=== PATIENT | female | born 1945 | race Asian ===

== ENCOUNTER 2020-12-29 11:24 | Outpatient (CLI) | payer MEDICARE, SELFPAY | END 2020-12-29 11:25 | disposition home or self-care (01) | LOC: ANHCOVIDVC 11:24 | PROVIDERS: PCP Family Medicine | DX: Z23 Encounter for immunization (principal) | CPT/HCPCS: 0001A; 91300 ==

== ENCOUNTER 2021-01-19 11:16 | Outpatient (CLI) | payer MEDICARE, SELFPAY | END 2021-01-19 11:17 | disposition home or self-care (01) | LOC: ANHCOVIDVC 11:16 | PROVIDERS: PCP Family Medicine | DX: Z23 Encounter for immunization (principal) | CPT/HCPCS: 0002A; 91300 ==

== ENCOUNTER 2021-06-01 07:51 | Outpatient (CLI) | payer MEDICARE, SELFPAY ==
--- NOTE | ~2021-06-01 | US_ITS ---
EXAMINATION: US thyroid DATE: 06/01/2021 08:21 INDICATION: Thyroid nodule. TECHNIQUE: Multiple ultrasound images of the thyroid were obtained. COMPARISON: Thyroid ultrasound 02/28/2013 FINDINGS: The right thyroid lobe measures 2.3 x 1.5 x 6.4 cm. The left thyroid lobe measures 1.8 x 2.8 x 6.3 c m. In the right thyroid lobe, there is a 1.8 cm predominantly solid, hypoechoic, bvkki-zmzw-kbiy nod ule with ill-defined margin without echogenic foci (TI-RADS TR4), stable from 02/28/13. In the left thy roid lobe, there is a 4.0 cm solid, hypoechoic, myqgu-rmbj-dier nodule with lobulated margin without echogenic foci (TR4), stable from 02/28/13. In the left thyroid lobe, there is a 5 mm solid, hypoechoic , ygdfx-ilhk-eslc nodule without echogenic foci with smooth margin (TR4). IMPRESSION: 1. Multinodular goiter, likely not clinically significant. No follow-up is needed. Reviewed, dictated and finalized at location A. IMPRESSION: 1. Multinodular goiter, likely not clinically significant. No follow-up is need ed.
== END 2021-06-01 07:52 | disposition home or self-care (01) ==
LOC: ANHIMG 07:52
PROVIDERS: PCP Family Medicine; Visit Provider Internal Medicine Endocrinology, Diabetes & Metabolism
DX: E04.2 Nontoxic multinodular goiter (principal)
CPT/HCPCS: 76536

== ENCOUNTER 2021-07-03 07:49 | Outpatient (CLI) | payer MEDICARE, SELFPAY ==
--- NOTE | ~2021-07-03 | DEXA_ITS ---
Bone Density Report Name: Crystal Martinez Age: 75 Sex: Female Ethnicity: Date of : 1945 Indication: postmenopausal; hysterectomy; Referring Provider: Paulette Munoz Study: Bone densitometry was performed. Exam Date: July 03, 2021 Accession number: [id number] Bone Density: Region BMD T-score Z-score Classification AP Spine (L1-L4) 1.128 0.7 3.3 Normal Femoral Neck (Left) 0.893 0.4 2.6 Normal Total Hip (Left) 1.078 1.1 3.0 Normal Total Hip Bilateral Avg 1.090 1.2 3.1 Normal Femoral Neck (Right) 0.933 0.8 3.0 Normal Total Hip (Right) 1.102 1.3 3.2 Normal World Health Organization criteria for BMD impression classify patients as: Normal (T-score at or above -1.0), Osteopenia (T-score between -1.0 and -2.5), or Osteoporosis (T-score at or below -2.5). 10-year Fracture Risk: FRAX not reported because: All T-scores for Spine Total, Hip Total, Femoral Neck at or above -1.0 Previous Exams: Region Exam Age BMD T-score BMD Change BMD Change Date g/cm2 vs Baseline vs Previous AP Spine(L1-L4) 07/03/2021 75 1.128 0.7 -0.005(-0.5%)# 0.009(0.8%) 03/10/2016 70 1.119 0.7 -0.014(-1.3%)# -0.014(-1.3%)# 02/28/2014 68 1.133 0.8 Total Hip(Left) 07/03/2021 75 1.078 1.1 -0.016(-1.5%)# -0.032(-2.9%)* 05/09/2019 73 1.110 1.4 0.016(1.4%)# 0.027(2.5%) 03/10/2016 70 1.083 1.2 -0.011(-1.0%)# -0.011(-1.0%)# 02/28/2014 68 1.095 1.3 Total Hip(Right) 07/03/2021 75 1.102 1.3 -0.043(-3.8%)# -0.006(-0.5%) 05/09/2019 73 1.108 1.4 -0.037(-3.3%)# -0.030(-2.6%)* 03/10/2016 70 1.138 1.6 -0.008(-0.7%)# -0.008(-0.7%)# 02/28/2014 68 1.146 1.7 *Denotes significance at 95% confidence level, LSC for AP Spine = 0.022 g/cm2, LSC for Total Hip = 0.027 g/cm2 Clinical Information Provided by Patient: Has the following medical conditions: Hysterectomy Patient maximum height was 66 Menopause Age: 55 Onset of menses at age 11 Number of children 1 Impression: The patient has normal bone mass. The BMD for the Total Hip(Left) decreased, changing by -2.9% since the last DXA exam. Discussion: LOW RISK OF FRACTURE; BONE DENSITY IS WELL ABOVE THE MINIMUM DESIRABLE LEVEL AND ABOVE AVERAGE FOR AGE AND SEX AT ALL SKELETAL SITES TESTED. This person's bone density is above expected limits for age and sex. This is rarely clinically significant, but should be pursued if there are significant musculoskeletal com
--- NOTE | ~2021-07-03 | MM_ITS ---
EXAMINATION: MM screening teresa BI w adebayo HISTORY: Screening TECHNIQUE: Craniocaudal and mediolateral oblique 3-D tomosynthesis images were obtained and synthetic 2-D images were generated. CAD analysis was submitted and interpreted. COMPARISON: Comparison to multiple prior studies sequentially, with oldest reviewed study dated /oh 12/2016. BREAST PARENCHYMAL COMPOSITION: There are scattered areas of fibroglandular density. FINDINGS: There is no evidence of suspicious mass, calcification, or architectural distortion to sugg est malignancy in either breast. There has been no suspicious interval change. IMPRESSION: 1. No mammographic evidence of malignancy. 2. Recommend routine screening mammography in one year. BI-RADS Category 1: Negative Reviewed, dictated and finalized at location A.
== END 2021-07-03 07:50 | disposition home or self-care (01) ==
LOC: ANHIMG 07:50
PROVIDERS: PCP Family Medicine; Visit Provider Nurse Practitioner Family
DX: Z12.31 Encounter for screening mammogram for malignant neoplasm of breast (principal); Z78.0 Asymptomatic menopausal state
CPT/HCPCS: 77063; 77067; 77080

== ENCOUNTER → 2023-02-23 07:47 | Outpatient (CLI) | payer MEDICARE, SELFPAY ==
--- NOTE | ~2023-02-23 | US_ITS ---
EXAMINATION: US abdomen limited DATE: 02/23/2023 08:26 INDICATION: Enlarging hepatic cyst TECHNIQUE: Multiple grayscale and Doppler ultrasound images of the abdomen were obtained. COMPARISON: CT, 07/24/2019 FINDINGS: Bowel gas obscures visualization of the pancreas. The visualized portions of the pancreas a re unremarkable. There are multiple cysts of the liver which measure up to 4.0 cm. The liver is other rueda normal with normal echogenicity and echotexture. No surface nodularity. Normal hepatopetal flow in the main portal vein. The gallbladder is normal with no abnormal wall thickening, pericholecystic fluid or stones. The normal common bile duct measures 3 mm. There was no sonographic Bishop sign. IMPRESSION: 1. Multiple hepatic cysts without significant change relative to the comparison CT. Reviewed, dictated and finalized at location B.
== END ==
PROVIDERS: PCP Family Medicine; Visit Provider Family Medicine
DX: K76.89 Other specified diseases of liver (principal); R10.11 Right upper quadrant pain
CPT/HCPCS: 76705

== ENCOUNTER 2023-04-24 11:34 | Emergency (ER) | payer MEDICARE, SELFPAY ==
[2023-04-24 11:43] VITALS: BP 145/69; PULSE 81; RESP 16; TEMP 36.6; O2SAT 98
--- NOTE | 2023-04-24 11:45 | ED.SKABFB ---
HPI - Skin/Abscess/Foreign Bdy General Chief complaint: Skin/Abscess/Foreign Body Stated complaint: insect bite Time Seen by Provider: 04/24/23 11:48 Source: patient Mode of arrival: ambulatory Limitations: no limitations History of Present Illness HPI narrative: 77 y/o female presented for c/o right wrist redness and swelling after she was stung by an unknown black insect this morning. 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 She took Benadryl 25mg and applied Nutmeg balm. Denies lip, tongue, or throat swelling, shortness of breath or wheezing, nausea, vomiting. Related Data Home Medications Medication Instructions Recorded Confirmed calcium carbonate 600 mg calcium 600 mg PO DAILY 12/09/22 04/06/23 (1,500 mg) tablet (Calcium) multivitamin 1 tablet PO DAILY 12/09/22 04/06/23 Allergies Allergy/AdvReac Type Severity Reaction Status Date / Time latex Allergy Mild RASH Verified 04/24/23 11:49 morphine Allergy Mild RASH Verified 04/24/23 11:49 Penicillins Allergy Unknown Unknown Verified 04/24/23 11:49 Review of Systems Review of Systems: CONSTITUTIONAL: Denies body aches, fever, chills, or sweats. EYES: Denies visual changes, redness, or discharge. ENT: Denies rhinorrhea, congestion CARDIOVASCULAR: Denies chest pain, palpitations, or edema. RESPIRATORY: Denies cough or dyspnea. GASTROINTESTINAL: Denies abdominal pain, nausea, vomiting, or diarrhea. SKIN: per HPI MUSCULOSKELETAL: Denies back pain, joint pain, or myalgia. NEUROLOGIC: Denies headache, numbness, tingling, or weakness. 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 HLD (hyperlipidemia) HTN (hypertension) IFG (impaired fasting glucose) Latex allergy Liver cyst Multinodular goiter Ovarian cancer Surgical History Surgical History History of hysterectomy History of ovarian cystectomy Family History Family History Unknown Cancer Arthritis Mother Family history of malignant neoplasm of uterus Social History Social History Smoking status: Never smoker Second hand tobacco smoke exposure: No Alcohol intake: never Substance use: unknown Substance use type: does not use Living arrangements: with family Occupation/Education: retired Gender identity (if verbalized by the patient): Female Sexual Orientation (if Verbalized by the Patient): Straight or Heterosexual Spiritual care concerns: No Comments At time of signature, I have reviewed and agree with nursing past medical, surgical, social and family history unless otherwise noted. Please see nursing chart for further information. There is no relevant family history pertinent to the presenting complaint Exam Narrative: GENERAL: Well-appearing HEAD: Normocephalic, atraumatic. EYES: conjunctivae clear, and EOMI. ENT: Mucous membranes moist. Oropharynx without edema, erythema or lesions. NECK: Supple. No lymphadenopathy CHEST: Clear to auscultation. HEART: Regular rate and rhythm. SKIN: Warm, dry. Right hand swelling from MCPs to mid forearm with erythema and moderate swelling surrounding puncture site medial aspect of hand, no streaking, induration, fluctuance or drainage. Right proximal forearm with additional erythematous round flat lesion approx 1.5cm diameter. NEURO: Alert and oriented x3. Course Course Emergency Course: Patient is aware of diagnosis, understands and agrees to treatment plan. Anticipatory guidance given. Patient agrees to follow-up as directed and is aware of reasons to seek care at the emergency department. Portions of this record may have been created with voice recognition software Lev
[2023-04-24] MEDS: methylPREDNISolone SOD SUCC 125 MG VIAL IM (12:04)
== END 2023-04-24 12:30 | disposition home or self-care (01) ==
PROVIDERS: Emergency Provider Nurse Practitioner Family; PCP Family Medicine
DX: T63.481A Toxic effect of venom of other arthropod, accidental (unintentional), initial encounter (principal); E78.5 Hyperlipidemia, unspecified; I10 Essential (primary) hypertension
CPT/HCPCS: 96372; 99213; G0463; J2930

== ENCOUNTER 2023-07-20 07:43 | Outpatient (CLI) | payer MEDICARE, SELFPAY ==
--- NOTE | ~2023-07-20 | MM_ITS ---
EXAMINATION: MM screening teresa BI w adebayo HISTORY: Screening TECHNIQUE: Craniocaudal and mediolateral oblique 3-D tomosynthesis images were obtained and synthetic 2-D images were generated. CAD analysis was submitted and interpreted. COMPARISON: Comparison to multiple prior studies sequentially, with oldest reviewed study dated 03/04. BREAST PARENCHYMAL COMPOSITION: Breast composed of scattered areas of fibroglandular density FINDINGS: There is no evidence of suspicious mass, calcification, or architectural distortion to sugg est malignancy in either breast. There has been no suspicious interval change. IMPRESSION: 1. No mammographic evidence of malignancy. 2. Recommend routine screening mammography in one year. BI-RADS Category 1: Negative Reviewed, dictated and finalized at location A.
== END 2023-07-20 07:44 | disposition home or self-care (01) ==
LOC: ANHIMG 07:46
PROVIDERS: PCP Family Medicine; Visit Provider Family Medicine
DX: Z12.31 Encounter for screening mammogram for malignant neoplasm of breast (principal)
CPT/HCPCS: 77063; 77067

== ENCOUNTER 2024-03-30 08:16 | Outpatient (CLI) | payer MEDICARE, SELFPAY ==
--- NOTE | ~2024-03-30 | US_ITS ---
Limited Abdominal Sonogram: Real-time sonographic imaging of the right upper quadrant was performed. Clinical History: Right upper quadrant pain Findings: The liver appears normal with no evidence of solid mass lesion or bile duct dilatation. He patic cysts are present, largest measuring 5.4 cm in maximum diameter with thin septation. Main rodney l vein demonstrates normal direction of flow. The gallbladder is well distended, and appears normal w ith no evidence of gallstone or wall thickening. The common bile duct measures 4 mm. The visualized pancreas, aorta, and IVC are unremarkable. Impression: No acute or clinically significant abnormality evident. Multiple hepatic cysts, as above. Reviewed, dictated and finalized at location . Impression: No acute or clinically significant abnormality evident. Multiple hepatic cysts, as above.
== END 2024-03-30 08:17 ==
LOC: GOSHIMG 08:17
PROVIDERS: PCP Family Medicine; Visit Provider Family Medicine
DX: K76.89 Other specified diseases of liver (principal)
CPT/HCPCS: 76705

== ENCOUNTER 2024-07-09 09:15 | Outpatient (CLI) | payer MEDICARE, SELFPAY ==
--- NOTE | ~2024-07-09 | DEXA_ITS ---
Bone Density Report Name: SAMEER BONE Age: 78 Sex: Female Ethnicity: Date of : 1945 Indication: postmenopausal; screening for osteoporosis; Referring Provider: JORGE ARAGON Study: Bone densitometry was performed. Exam Date: July 09, 2024 Accession number: [id number] Bone Density: Region BMD T-score Z-score Classification AP Spine(L1-L4) 1.132 0.8 3.5 Normal Femoral Neck (Left) 0.920 0.6 3.0 Normal Total Hip (Left) 1.084 1.2 3.3 Normal Femoral Neck (Right) 0.926 0.7 3.0 Normal Total Hip (Right) 1.074 1.1 3.2 Normal Total Hip Mean 1.079 1.2 3.3 Normal World Health Organization criteria for BMD impression classify patients as: Normal (T-score at or above -1.0), Osteopenia (T-score between -1.0 and -2.5), or Osteoporosis (T-score at or below -2.5). 10-year Fracture Risk: FRAX not reported because: All T-scores for Spine Total, Hip Total, Femoral Neck at or above -1.0 Previous Exams: Region Exam Age BMD T-score BMD Change BMD Change Date g/cm2 vs Baseline vs Previous AP Spine (L1-L4) 07/09/2024 78 1.132 0.8 -0.001 (-0.1%) 0.005 (0.4%) 07/03/2021 75 1.128 0.7 -0.005 (-0.5%) 0.009 (0.8%) 03/10/2016 70 1.119 0.7 -0.014 (-1.3%) -0.014 (-1.3%) 02/28/2014 68 1.133 0.8 Total Hip(Left) 07/09/2024 78 1.084 1.2 -0.010 (-0.9%) 0.006 (0.6%) 07/03/2021 75 1.078 1.1 -0.016 (-1.5%) -0.032 (-2.9%) 05/09/2019 73 1.110 1.4 0.016 (1.4%)# 0.027 (2.5%) 03/10/2016 70 1.083 1.2 -0.011 (-1.0%) -0.011 (-1.0%) 02/28/2014 68 1.095 1.3 Total Hip(Right) 07/09/2024 78 1.074 1.1 -0.071 (-6.2%) -0.028 (-2.5%) 07/03/2021 75 1.102 1.3 -0.043 (-3.8%) -0.006 (-0.5%) 05/09/2019 73 1.108 1.4 -0.037 (-3.3%) -0.030 (-2.6%) 03/10/2016 70 1.138 1.6 -0.008 (-0.7%) -0.008 (-0.7%) 02/28/2014 68 1.146 1.7 *Denotes significance at 95% confidence level, LSC for AP Spine = 0.022 g/cm2, LSC for Total Hip = 0.027 g/cm2 # Denotes dissimilar scan types or analysis methods Clinical Information Provided by Patient: Has used the following medications: Vitamin D, Calcium Patient maximum height was 66.0 Menopause Age: 55 Onset of menses at age 11 Number of children 1 Impression: The patient has normal bone mass. The BMD for the Total Hip(Right) decreased, changing by -2.5% since the last DXA exam. Discussion: LOW RISK OF FRACTURE; BONE DENSITY IS
== END 2024-07-09 09:16 | disposition home or self-care (01) ==
LOC: ANHIMG 09:16
PROVIDERS: PCP Family Medicine; Visit Provider Family Medicine
DX: Z13.820 Encounter for screening for osteoporosis (principal); Z78.0 Asymptomatic menopausal state
CPT/HCPCS: 77080

== ENCOUNTER 2024-08-31 07:36 | Outpatient (CLI) | payer MEDICARE, SELFPAY ==
--- NOTE | ~2024-08-31 | MM_ITS ---
EXAMINATION: MM screening [facility] BI w adebayo HISTORY: Screening mammogram TECHNIQUE: Craniocaudal and mediolateral oblique 3-D tomosynthesis images were obtained and synthetic 2-D images were generated. CAD analysis was submitted and interpreted. COMPARISON: 07/20/2023, 07/03/2021, 01/30/2019 BREAST PARENCHYMAL COMPOSITION:Not Dense. There are scattered areas of fibroglandular density. FINDINGS: No suspicious mass, calcification, or architectural distortion are identified in either jackson ast to suggest malignancy. There has been no suspicious interval change. IMPRESSION: No mammographic evidence of malignancy. Recommend routine screening mammography in one year. BI-RADS Category 1: Negative Reviewed, dictated and finalized at location .
== END 2024-08-31 07:37 | disposition home or self-care (01) ==
LOC: ANHIMG 07:38
PROVIDERS: PCP Family Medicine; Visit Provider Family Medicine
DX: Z12.31 Encounter for screening mammogram for malignant neoplasm of breast (principal)
CPT/HCPCS: 77063; 77067

== ENCOUNTER 2024-11-26 10:59 | Emergency (ER) | payer OTHER, MEDICARE, SELFPAY ==
--- NOTE | ~2024-11-26 | XR_ITS ---
Left Shoulder Technique: AP and scapular Y views were obtained. Clinical History: Trauma Findings: No fracture or dislocation is seen. Osseous alignment is anatomic. The glenohumeral and acr omioclavicular joint spaces are preserved. Soft tissues are unremarkable. Impression: Unremarkable left shoulder radiographs. Reviewed, dictated and finalized at [facility]. [employer] Impression: Unremarkable left shoulder radiographs.
--- NOTE | ~2024-11-26 | XR_ITS ---
HISTORY: trauma COMPARISON: None TECHNIQUE: 3 views of the right first digit were performed FINDINGS: No acute fracture or dislocation. Alignment is maintained. Soft tissues are unremarkable without foreign body or significant calcification. Mineralization is age-appropriate. IMPRESSION: No acute fracture, as detailed above. Reviewed, dictated and finalized at location A. DONTICS DENTIST
--- NOTE | ~2024-11-26 | XR_ITS ---
Lumbosacral Spine: AP and lateral views Clinical History: Pain Findings: The normal lordotic curve is maintained. No fracture seen. There is minimal grade 1 retroli sthesis of L3 over L4. There are mild to moderate degenerative disc changes throughout the lumbar spi ne. There is moderate facet arthropathy throughout. The sacroiliac joints are normally outlined. Impression: Moderate degenerative spondylosis, as detailed above. Reviewed, dictated and finalized at location M. S OPERATOR [employer] Impression: Moderate degenerative spondylosis, as detailed above.
[2024-11-26 11:41] VITALS: BP 154/96; PULSE 87; RESP 16; TEMP 36.5; O2SAT 97
--- OUTSIDE RECORDS SUMMARY | 2024-11-26 12:06 | XMS_ITS | Continuity of Care Document ---
Author Organization [facility] Address [address] [place] [address] Phone Care Team Providers Care Phlebotomy Tech Name Role Phone Selwyn Little MD Unavailable Unavailabl e Allergies, Adverse Reactions, Alerts Substance Reaction Status Criticality morphine Rash Active No Information aspirin Rash Active No Information latex Rash Active No Information Procedures Procedure Date X-ray exam finger(s), minimum 2 views Au Kenalog 10mg/mL Asp/inject Minor joint or bursa w/o US g uidance Office/outpatient visit,est, mod 2023 Global/Postop followup visit Tendon sheath incision, trigger finger M Office/outpatient visit,est, mod 2021 Kenalog Triamcinolone acetonide inj Inject tndn sheath/lgmnt/gangl cyst Office/outpatient visit,new, mod 2020 Advance Directives Directive Yes / No Effective Date File Name No Information Encounters Encounter Description Practice Location Reason(s) For Visit Diagnoses Date Provider Providers Copied on Encounter Office/outpat ient visit,est, mod [facility], [address] [facility] [place], [place], [id number], [place] tel:[phone] [facility] Right hand (chief complaint) Pain in right finger(s)Kaela josh osteoarthrit is, right hand 4 Sidney Samano. [address], [place], [place], [id number], [place]. tel:[phone] Referring Provider: Selwyn Mccain, [address], [place], [address] . tel:[phone] [facility], [address], [place], [place], [id number], [place] tel:[phone] [facility] Right hand (chief complaint) Trigger thumb, right thumb 2 Sidney Samano. [address], [address], [place], [place], [id number], [place]. tel:[phone] [facility], [address] [address], [place], [place], [id number], [place] tel:[phone] [facility] No Information 2 Sidney Samano. [address], [address] [address], [place], [place], [id number], [place]. tel:[phone] Referring Provider: Selwyn Mccain, [address], [place], [address] . tel:[phone] Office/outpat ient visit,[facility], [address] [address], [place], [place], [id number], [place] tel:[phone] [facility] Right Hand (chief complaint) Trigger thumb, right thumb 2 Sidney Samano. [address], [facility] [address], [place], [place], [id number], [place]. tel:[phone] Referring Provider: Selwyn Mccain, [address], [place], [address] . tel:[phone] Office/outpat ient visit,[facility], [address], [place], [place], [id number], [place] tel:[phone] [facility] Right Hand (chief complaint) Trigger thumb, right thumb 1 Sidney Samano. [address], [address], [place], [place], [id number], . tel:[phone] Referring Provider: Selwyn Mccain, [address], [place], [address] . tel:[phone] Family History Family Member Type Diagnosis Age At Onset Mother Problem (finding) Osteoarthritis Immunizations Vaccine Date Status Comments influenza, injectable, quadrivalent, (3 years or older) not administered Note: recorded ; Ann rce: Source Unspecified Payers Payer name Insurance type Covered republican ID Authoriza tion(s) [employer] Medicare CI [id number] Social History Type Description Quantity Date Captured Comments Alcohol Use Details Unknown Caffeine Use Details Unknown Tobacco Use Status No Information Smoking Status No Information Sex Female Vital Signs Date / Time: Height Weight BMI Pulse Rate Blood Pressure Temperature Respiratory Rate Body Surface Area Head Circumference Head Circ. Percentile Wt./Javed. Percentile BMI percentile Pulse Ox Inhaled Ox 9:32 AM 66.00 in 66.678 kg (147.00 lbs) 23.7 3 kg/m neftalier (2) Chief Complaint And Reason For Visit From encounter dated '06/21/2024 09:30'. Right hand (chief complaint). Description: Crystal returns to the office today on June 21, 2024. She is here because of right thumb pain. I treated Crystal for a right trigger thumb with an A1 pulleytrigger release procedure over 2 years ago back on March 01, 2022. Crystal did well with surgery, but she has had pain again in the right thumb for the past 2 months. She does not have triggering. She loc alizes the pain to the right thumb metacarpophalangeal joint. Reason For Referral Reason For Referral No Information Plan Of Treatment Date Type Action Status Referral Ordered: X-ray exam finger(s), minimum 2 views RT ordered History Of Present Illness Encounter Date Complaint History Of Prese nt Illness Right hand Crystal returns t o the office today on June 21, 2024. She is here because of right thumb pain. I treated Crystal for a right trigger thumb with an A1 luke trigger release procedure over 2 years ago back on March 01, 2022. Crystal did well with surgery, but she has had pain again in the right thumb for the past 2 months. She does not have triggering. She localizes the pain to the right thumb metacarpophalangeal joint. Right hand Crystal presents to the office today on March 15, 2022. She is here for follow up of a right trigger thumb. Crystal is 2 weeks out from an A1 luke trigger release procedure for the right thumb on March 01, 2022. Crystal is pleased with her response to surgery. She returns for follow up today. Right Hand Crystal returns t o the office today on January 14, 2022. She is here for follow up of a right trigger thumb. Crystal was last seen in the office nine months ago on April 06, 2021. At that time I injected the flexor tendon sheath of the right thumb with lidocaine and Kenalog for the right trigger thumb. Crystal returns today reporting that the injection helped for about one month, but the pain and triggering returned after that. She is here for follow up today. 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 She is here for the right thumb again today. Right Hand Crystal presents to the office today on April 06, 2021. She is here because of pain and triggering of the right thumb. Her right thumb symptoms have been present for about two months. Crystal reminds me that I operated on her left thumb back on February 05, 2010. 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 She was taken to surgery for an A1 luke trigger release of the left thumb and excision of the volar retinacular ganglion cyst, and she did well. She was very pleased with her response to surgery on the left side. She is here for the right thumb today. Functional Status Date Functional Assessmen t No Information Instructions Date Instruction Additional Infor matelian No Information Assessments Type Assessment Date assessment Pain in right finger(s) 024 assessment Primary osteoarthritis, right lopez nd impression We discussed treatme nt options for the right thumb metacarpophalangeal joint osteoarthritis. We decided to try a cortisone injection today. I injected the right thumb metacarpophalangeal joint today with 1 cc lidocaine and 1 cc Kenalog for the osteoarthritis at the right thumb metacarpophalangeal joint. Crystal may advance her activities as tolerated. She may follow up with me as needed. Crystal may also call with any questions or concerns Patient Care Teams Name Effective Dates (start - stop) Status Members No Information
--- OUTSIDE RECORDS SUMMARY | 2024-11-26 12:06 | XMS_ITS | Patient Health Summary ---
Author Organization [facility] Address [address] [place] [address] Care Team Providers Care Groundskeeping Maintenance Name Role Phone Yadiel Rowland MD Primary Care Provider [phone] Note from [facility],non-owned Affiliates and Associated Physician Practices is amultiple site organization consisting of ambulatory clinics and hospital sitesin [place], [place], [place] and [place]. This disclosure is being madepursuant to the Care Everywhere program and may not contain all information available regarding this patient. Last updated 18.[facility] Allergies * Latex(Skin peels) * Morphine(Rash and itching) * Penicillins(itching) * Rofecoxib Medications * Be aware that medications may not be up to date on this document. Alwaysverify current medications with the patient. * alendronate (FOSAMAX) 70 MG tablet Take 70 mg by mouth every 7 days before meal. Take in morning with full glass of water on empty stomach and remain upright for 30 min * multivitamin daily (THERAGRAN) tablet Take 1 Tab by mouth daily with food * calcium 600 MG tablet Take 1 Tab by mouth daily with food * Wcxfwsvvb-Zntbybrtuty-Yvm D (GLUCOSAMINE COMPLEX PO) Take 1 Tab by mouth once daily * oxyCODONE-acetaminophen (PERCOCET) 5-325 MG tablet(Started 08/31/2016) Take 1 Tab by mouth every 6 hours as needed for Pain * benzocaine-menthol (DERMOPLAST) 20-0.5 % spray(Started 08/31/2016) Apply to affected area as needed for Pain (apply to perineum as needed for pain.) Active Problems Problem Noted Date Diagnosed Date 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 Uterine cancer 08/26/2016 Ovarian cancer 08/26/2016 Social History Tobacco Use Types Packs/Day Years Used Date Smoking Tobacco: Never Smokeless Tobacco: Never Tobacco Cessation:Counseling Given: No Alcohol Use Standard Drinks/Week Comments No 0 (1 standard drink = 0.6 oz pur e alcohol) Sex and Gender Information Value Date Recorded Sex Assigned at Not on file Gender Identity Not on file Sexual Orientation Not on file Last Filed Vital Signs Vital Sign Reading Time Taken Comments Blood Pressure 140/80 11/10/2017 1:46 PM SAFETY AND HEALTH MANAGER Pulse 61 08/31/2016 12:45 PM CDT Temperature 36.4 ??C (97.5 ??F) 08/31/2016 11:55 AM C DT Respiratory Rate 15 08/31/2016 12:45 PM CDT Oxygen Saturation 99% 08/31/2016 12:45 PM CDT Inhaled Oxygen Concentration - - Weight 64.9 kg (143 lb) 11/10/2017 1:46 PM SAFETY AND HEALTH MANAGER Height 167.6 cm (5' 6 ) 11/10/2017 1:46 PM SAFETY AND HEALTH MANAGER Body Mass Index 23.08 11/10/2017 1:46 PM SAFETY AND HEALTH MANAGER Procedures * PATHOLOGY TISSUE(Performed 11/10/2017) * PATHOLOGY TISSUE(Performed 11/10/2017) * PATHOLOGY/GENETICS HISTORICAL-ONBASE(Performed 11/10/2017) * PAP IMAGE-GUIDED W HPV(Performed 04/07/2017) * PATHOLOGY/GENETICS HISTORICAL-ONBASE(Performed 04/07/2017) * CARDIAC RHYTHM STRIP ORDER(Performed 09/02/2016) * PATHOLOGY TISSUE EXAM (STL)(Performed 08/31/2016) Performed for VAIN (vaginal intraepithelial neoplasia) * VAGINECTOMY(Performed 08/31/2016) Performed for VAIN (vaginal intraepithelial neoplasia) * PATHOLOGY/GENETICS HISTORICAL-ONBASE(Performed 08/31/2016) * PAP IMAGE-GUIDED W HPV(Performed 08/02/2016) * PATHOLOGY/GENETICS HISTORICAL-ONBASE(Performed 08/02/2016) * PAP IMAGE-GUIDED W HPV(Performed 04/09/2015) * PATHOLOGY/GENETICS HISTORICAL-ONBASE(Performed 04/09/2015) * PAP IG RFLX HPV ASCU(Performed 07/18/2013) * PATHOLOGY/GENETICS HISTORICAL-ONBASE(Performed 07/18/2013) * PATHOLOGY/GENETICS HISTORICAL-ONBASE(Performed 01/10/2013) * PATHOLOGY/GENETICS HISTORICAL-ONBASE(Performed 07/05/2012) * LAB HISTORICAL RESULTS-ONBASE(Performed 07/05/2012) * PATHOLOGY/GENETICS HISTORICAL-ONBASE(Performed 07/05/2012) * PAP IG RFLX HPV ASCU(Performed 02/09/2012) * PATHOLOGY/GENETICS HISTORICAL-ONBASE(Performed 02/09/2012) * PAP IG RFLX HPV ASCU(Performed 11/10/2011) * PATHOLOGY/GENETICS HISTORICAL-ONBASE(Performed 11/10/2011) * CARDIAC RHYTHM STRIP ORDER(Performed 07/14/2011) * PAP THINPREP(Performed 01/06/2011) * LAB HISTORICAL RESULTS-ONBASE(Performed 12/29/2010) * PAP THINPREP(Performed 09/14/2010) * CANCER ANTIGEN (CA)125 BLOOD(Performed 09/07/2010) * PAP THINPREP(Performed 05/22/2010) * CANCER ANTIGEN (CA)125 BLOOD(Performed 05/07/2010) * PAP THINPREP(Performed 01/05/2010) * LAB HISTORICAL RESULTS-ONBASE(Performed 01/05/2010) * CANCER ANTIGEN (CA)125 BLOOD(Performed 12/29/2009) * LAB HISTORICAL RESULTS-ONBASE(Performed 07/23/2009) * PATHOLOGY/GENETICS HISTORICAL-ONBASE(Performed 07/23/2009) * PATHOLOGY/GENETICS HISTORICAL-ONBASE(Performed 03/11/2009) * LAB HISTORICAL RESULTS-ONBASE(Performed 03/05/2009) * PATHOLOGY/GENETICS HISTORICAL-ONBASE(Performed 12/11/2008) * LAB HISTORICAL RESULTS-ONBASE(Performed 12/03/2008) * CYTOLOGY NON-SENIOR STORAGE ADMINISTRATOR PANEL(Performed 07/19/2000) * CYTOLOGY NON-SENIOR STORAGE ADMINISTRATOR PANEL(Performed 07/19/2000) * FROZEN SECTION(Performed 07/19/2000) Results * PATHOLOGY/GENETICS HISTORICAL-ONBASE (11/10/2017) Only the most recent of14 resultswithin the time period is included. 11/10/2017 Historical Provider LAB - CHEMISTRY O RDERABLES [facility] [address] * PATHOLOGY TISSUE (11/10/2017 12:00 AM SAFETY AND HEALTH MANAGER) Only the most recent of2 resultswithin the time period is included. Pathologist [facility] Surgical Pathology Tissue ACCESSION No: [id number] CLINICAL HISTORY: Vaginal cuff biopsy. FINAL DIAGNOSIS: Vaginal cuff biopsy: - ??Fibrosis with chronic inflammation - ??Negative for malignancy MICROSCOPIC DESCRIPTION AND COMMENT: Sections of the vaginal biopsy cut show a biopsy fragment of vaginal mucosa with underlying fibrosis and chronic inflammation. ??There is no dysplasia or invasive malignancy. MS/met GROSS DESCRIPTION: The specimen is received fixed in formalin in one container labeled with the patient's name, Crystal Martinez, and vaginal biopsy cuff , and consists of two rubbery, brown-chao tissue fragments measuring 0.2 and 0.4 cm in greatest dimension with an aggregate measurement of 0.7 x 0.3 x 0.2 cm. ??The specimen is filtered into a bag and submitted entirely in cassette A1/ CT for EMS/met The performance characteristics of all immunohistochemical and indirect immunofluorescence stains (if any) cited in this report were determined by the [facility] of [facility].?? Some of these tests were developed by our own laboratory and have not been cleared or approved by the US Food and Drug Administration.?The FDA does not require this test to go through premarket FDA review.?These tests are used for clinical purposes. They should not be regarded as investigational or for research.?? This laboratory is certified under the Clinical Laboratory Improvement Amendments (CLIA) as qualified to perform high complexity clinical laboratory testing. This case has been personally reviewed and interpreted by the attending (teaching) pathologist. Final Diagnosis performed by Kike Costa DO. Electronically signed 11/18/2017 [facility] Other (qualifier value) 11/10/2017 11/17/2017 10:59 AM SAFETY AND HEALTH MANAGER Narrative [facility] - 11/18/2017 10:39 AM SAFETY AND HEALTH MANAGER Specimen A->Vaginal ? CUFF BIOPSY Bobbi Singh TIPPING MACHINE OPERATOR-PUBLIC HEALTH WORKER LAB - PATHOLOGY/ CYTOLOGY ORDERABLES [facility] [address] [facility] [phone] * (ABNORMAL) PAP IMAGE-GUIDED LIQUID BASE W HPV (04/07/2017 12:00 AM CDT) Only the most recent of3 resultswithin the time period is included. Pap Image-Guided Liquid-Based with HPV Accession No: [id number] Specimen:Endocervi ryan ThinPrep Slides:1 SPECIMEN ADEQUACY: Specimen Processed and Examined, but Unsatisfactory for Evaluation of Epithelial Abnormality Because of: - Scant Squamous Component INTERPRETATION: UNSATISFACTORY FOR EVALUATION NOTE(S): HPV DIRECT - HPV Result to Follow This specimen was evaluated by the ThinPrep Imaging System along with an additional manual rescreening by a machine stripper cutter and/or pathologist Initial Evaluation performed by Nilda ROSEN (ASC). Electronically signed 04/11/2017 Interpretation performed by Moe Paniagua MD. ??Electronically signed 04/19/2017 (A) [facility] ([facility]) Endocervical 04/07/2017 04/11/2017 9 :10 AM CDT Brayan Kc MD LAB - PATHOLOGY/CYTO LOGY ORDERABLES Performing Organization Address [facility] de Phone Number [facility] ([facility]) * CARDIAC RHYTHM STRIP ORDER (09/02/2016 8:56 PM CDT) Only the most recent of2 resultswithin the time period is included. Narrative 09/02/2016 8:56 PM CDT Ordered by an unspecified provider. Scanned Document CARDIAC SERVICES ORD ERABLES * GROSS + MICRO EXAM (STL) (08/31/2016 10:58 AM CDT) Case Report Surgical Pathology Report ? Case: [id number] ? Authorizing Provider: ??Brayan Kc MD ? Collected: ? 08/31/2016 10:58 AM ? Ordering Location: ? [facility] ? Received: ?08/31/2016 11:32 AM ? Pathologist: ? Juan Miguel García MD ? Specimens: ?? A) - Vagina Biopsy, vaginal cuff biopsy ? B) - Vagina Biopsy, vaginal ??biopsy ? 09/01/2016 11:20 AM [facility] Final Diagnosis 1 and 2, vaginal cuff and vaginal, biopsies: -- Surface erosion/ulceration -- Negative for dysplasia or malignancy. 09/01/2016 11:20 AM [facility] Gross Description Received in formalin are two containers each labeled, Crystal Martinez. Container 1 is labeled, ? vaginal cuff biopsy.? The container holds three pink-chao and chao-nuñez tissue fragments measuring from 0.4 cm up to 0.6 cm. The specimen is entirely submitted in cassette labeled A1. Container 2 is labeled, ? vaginal biopsy.? The container holds a single pink-chao tissue fragment measuring 0.4 x 0.3 x 0.2 cm. The specimen is entirely submitted in cassette labeled B1. DYT/na 09/01/2016 11:20 AM T [facility] Microscopic Description 1 and 2. Sections show vaginal squamous mucosa with surface erosion/ulceraton with associated inflammation and vascular congestion. No dysplasia or malignancy is seen. 09/01/2016 11:20 AM T [facility] Disclaimer All histochemical and/or immunohistochemical results are interpreted with controls that demonstrate appropriate staining reactions before reporting results. Note on use of immunocytochemistry reagents: This test was developed and its performance characteristic determined by [facility], Department of Laboratory Medicine. It has not been cleared or approved by the U.S. Food and Drug Administration (FDA). The FDA has determined that such clearance or approval is not necessary. The test is used for clinical purpose. It should not be regarded as investigational or for research. This laboratory is certified to perform high complexity testing. 09/01/2016 11:20 AM T [facility] Embedded Images 09/01/2016 11:20 AM T [facility] Pathology/Cytology VAGINAL BIOPSY SPECIMEN / Unknown 08/31/2016 10:58 AM CDT 08/31/2016 11:32 AM CDT Miscellaneous samples (specimen) VAGINAL BIOPSY SPECIMEN / Unknown 08/31/2016 10:59 AM CDT 08/31/2016 11:32 AM CDT Brayan Kc MD LAB - PATHOLOGY/CYTO LOGY ORDERABLES Performing Organization Address City/[facility] Co de Phone Number [facility] [address] [place] [address] * PAP IG RFLX HPV ASCU (07/18/2013) Only the most recent of3 resultswithin the time period is included. ENTIRE VAGINA / Unknown 07/18/[address] [facility] - 07/24/2013 7:39 AM CDT Mel Katz MD LAB - PATHOLOGY/CYTO LOGY ORDERABLES [facility] [address] * LAB HISTORICAL RESULTS-ONBASE (07/05/2012) Only the most recent of6 resultswithin the time period is included. 07/05/[address] [facility] - 07/13/2012 9:05 AM CDT Historical Provider LAB - CHEMISTRY Shaunna WALLACE Performing Organization Address [facility] Co de Phone Number [facility] [address] [place], [place] [address] * PAP THINPREP (01/06/2011) Only the most recent of4 resultswithin the time period is included. Other (qualifier value) PART OF UTERINE CERVIX / Unknown 01/06/[address] [facility] - 01/13/2011 2:44 PM CDT Preferred Lab:->OTHER EXTERNAL LAB Mel Katz MD LAB - PATHOLOGY/CYTO LOGY ORDERABLES Performing Organization Address [facility] de Phone Number [facility] * CANCER ANTIGEN (CA)125 BLOOD (09/07/2010 9:36 AM SAFETY AND HEALTH MANAGER) Only the most recent of3 resultswithin the time period is included. CA 125 4 <21 U/mL [facility] Comment: This test was performed using the Siemens Chemiluminescent method. Values obtained from different assay methods cannot be used interchangeably. CA 125 levels, regardless of value, should not be interpreted as absolute evidence of the presence or absence of disease. Test Performed at: [employer] [place] [id number] [place] [address] ??[id number] BRAD SALINAS DO,MPH 09/07/2010 9:36 AM SAFETY AND HEALTH MANAGER 09/07/2010 9:36 AM SAFETY AND HEALTH MANAGER Mel Katz MD LAB - CHEMISTRY STACIE MANRIQUEZ Performing Organization Address [facility] Co de Phone Number [facility] ([facility]) * CYTOLOGY NON-SENIOR STORAGE ADMINISTRATOR PANEL (07/19/2000 1:52 PM CDT) Only the most recent of2 resultswithin the time period is included. Result CASE NUMBER [id number] Comment: ORDERING PHYSICIAN ??RENITA KATZ SPECIMEN TYPE ?Fluid-diaphragmatic washings Date ? 07/19/2000 Physician ?Sterling Specimen Adequacy ?Satisfactory for Evaluation Cell Pathology ? Benig mesothelial cells seen. *Diagnosis ? Negewtive. *Comment ? 90 cc. of cloudy, red fluid. ??1 Thin-prep made. Snomed. ?07/21/2000 0747 <1> Pathologist ?Masoud Levy M.D. CPT code ? 8104/66524 MISCELLANEOUS SAMPLES / Unknown 07/19/2000 1:52 PM CDT 07/19/2000 1:52 PM CDT Historical Provider MD LAB - PATHOLOGY/C YTOLOGY ORDERABLES * FROZEN SECTION (07/19/2000 10:25 AM CDT) Result CASE NUMBER [id number] Comment: ORDERING PHYSICIAN ??RENITA KATZ SPECIMEN TYPE ?Tissue-rt gutter Date ? 07/19/2000 Physician ?Sterling Gross Description ? Tissue submitted ??1-right gutter. ??2-posterior cul-de-sac ??3. Rectal implant. 4-pelvic washings, 5-diaphragmatic washings. 6-right vaginal cuff, 7-left vaginal cuff, 8-right vaginal wall, 9-left vaginal wall,10-infudibular pelvic, 11-right pelvic lymph node, 12-right common iliac lymph node, 13- left infudibular pelvic ligament, 14-left pelvic lymph node, 15-left periaortic lymph node, 16-right periarotic lymph node, 17-appendix, 18-left gutter biopsy, 19-omentum. 1-Gross examination ??the specimen is identified as right gutter is a red chao irregular soft tissue fragment measuring 0.6 x 0.5 x 0.4 cm. This specimen is totally submitted for frozen section in FSA. ?? RK/c 2-Gross examination ??the specimen is identified as posterior cul-de- sac are two red chao tissue fragments measuring 0.5 and 0.3 cm each in greatest diameter. ??Both are totally submitted for frozen section in FSB. 3-Gross examination ??the specimen is identified as rectal implant are two pink chao irregular soft tissue fragments measuring 0.7 and 0.6 cm each in greatest diameter. ??Both are totally submitted for frozen section in FSC. ?? RK/c 4-the specimen is identified as pelvic washings and consists of 30 cc of red fluid. This specimen is submitted for cell block. 5-the specimen is identified as diaphragmatic washings and consists of 15 cc of red fluid. This specimen is submitted for cell block. ??[place]/ [facility] [place] 6-the specimen is identified as right vaginal cuff is a 0.6 x 0.5 x 0.3 cm chao red irregularly-shaped soft tissue fragment. The entire specimen is submitted in cassette D. 7-the specimen is identified as left vaginal cuff is a yellow chao irregularly-shaped soft tissue fragment measuring 1.0 cm in greatest diameter. ?? The entire specimen is submitted in E. 8-the specimen is identified as right lateral pelvic wall is a pink chao irregular soft tissue fragment measuring 1.0 cm in greatest diameter. ??The entire specimen is submitted in F. 9-the specimen is identified as left lateral pelvic wall and consists of 4 yellow chao irregular fibrofatty soft tissue fragments varying from 1.0 to 0.5 cm. in greatest diameter. ??The entire specimen is submitted in G. 10-the specimen is identified as infundibular pelvic and consists of a chao pink irregular soft tissue fragment 3.5 x 3.0 x 1.0 cm. ??The specimen h as a firm nodule, 2.0 x 1.0 x 0.8 cm. that is yellow chao. This grossly represents a lymph node or implant. The entire specimen is submitted in H. 11-the specimen is identified as right pelvic lymph node and consists of 2 red yellow fibrofatty soft tissue fragments, 3.3 x 1.5 x 0.6 cm and 3.3 x 1.2 x 0.4 cm. ??One of the soft tissue fragments may contain lymphoid tissue, however both appear to be aggregates of adipose tissue. The entire specimen is submitted in I. 12-the specimen is identified as right common iliac lymph node and consists of a single chao red lymph node measuring 2.3 x 1.5 x 0.5 cm. this lymph node is totally submitted in J. 13-the specimen is identified as left infudibular pelvic ligament is a yellow chao soft tissue fragment 3.7 x 3.0 x 1.3 cm. one area of this has a chao purple firm area 2.0 cm in greatest diameter. ??This grossly appears as a implant or lymph node. The entire specimen is submitted in K. 14-the specimen is identified as left pelvic lymph node and consists of a yellow red lymph node 3.0 x 2.0 x 0.6 cm. The entire specimen is submitted in cassette L. 15- the specimen is identified as left periaortic lymph node is a yellow red lymph node measuring 2.5 x 2.0 x 0.6 cm. ??The entire specimen is submitted in M. 16-the specimen is identified as right periaortic lymph node is a yellow red lymph node measuring 3.3 x 2.3 x 1.0 cm. ??The entire specimen is submitted in N. 17-the specimen is identified as appendix is a pink chao appendix, 7.5 x 0.7 x 0.7 cm. ??The specimen is serially sectioned revealing a wall thickness of 0.4 cm. ??The lumen is 0.2 cm in diameter. the tip is longitudinally sectioned revealing no masses. One half of the tip in a cross section from the mid and proximal portion are submitted in O. No masses are identified. 18-the specimen is identified as `left gutter biopsy are two chao irregular soft tissue fragments, 1.0 and 0.6 cm in greatest diameter. ?? These fragments are totally submitted in P. 19-the specimen is identified as omentum is a portion of yellow red omentum, 45 x 7 x 3 cm., 330 gms. is serially sectioned revealing unremarkable yellow pink fibrofatty soft tissue. ??Caustic Operator sections are submitted in Q and R. ??RK/jasonc Microscopic Exam ? 1. ??The specimen identified as right gutter consists of benign smooth muscle without metastasis. ?? The permanent sections concur with the frozen section diagnosis. 2. ??The specimen identified as posterior cul-de-sac consists of benign smooth muscle and adipose tissue without metastasis. ??The permanent sections confirm the frozen section diagnosis. 3. ??The specimen identified as rectal implant consists of smooth muscle and adipose tissue and is without metastasis. ??Permanent sections concur with the frozen section diagnosis. 4. ??The specimen identified as pelvic washings consists of benign mesothelial cells and blood. ??No metastasis is present. 5. ??The cell block from the specimen identified as diaphragmatic washings consists of benign mesothelial cells and largely blood. ??No metastasis is identified. 6. ??The specimen identified as right vaginal cuff consists of benign smooth muscle cells and blood. ??No metastases are identified. ?? 7. ??The specimen identified as left vaginal cuff consists of largely adipose tissue and two fragments of benign smooth muscle tissue. ??No metastases are identified. 8. ??The specimen identified as right lateral pelvic wall consists of smooth muscle tissue and vessels. ??No metastases are identified. 9. ??The specimen identified as left lateral pelvic wall consists of fragments of adipose tissue and smooth muscle. ??No metastases are identified. 10. The specimen identified as infundibular pelvic consists of benign adipose tissue intermixed with numerous vessels. ??A suture granuloma with foreign body reaction consisting of giant cells is present. ??No metastases are identified. 11. The specimen identified as right pelvic lymph node consists of benign lymphoid tissue. ??10/31 lymph node without metastasis is identified. ?? 12. The specimen identified as right common iliac lymph node consists of two benign aggregates of lymphoid tissue. ??No metastases are identified in 2/2 lymph nodes. 13. ??The specimen identified as left infundibular pelvic ligament consists of a benign lymph node aggregate. ??No metastases are identified in 1/1 lymph node. ?? 14. ??The specimen identified as left pelvic lymph node consists of a benign lymph node. No tumor is seen. 15. ??The specimen identified as left periaortic lymph node consists of fatty tissue. No lymph nodes are identified. No tumor is seen. 16. ??The specimen identified as right periaortic lymph node consists of fatty tissue with six lymph node profiles. No tumor is seen. 17. ??The specimen identified as appendix consists of benign appendiceal lymphoid aggregates. ??No metastases or masses are identified. 18. ??The specimen identified as left gutter biopsy consists of benign soft tissue with surrounding adipose tissue. ??No metastases are identified. 19. ??The specimen identified as omentum consists of mostly adipose tissue with intermixed small vessels, hemorrhage, and benign-appearing smooth muscle. ??There is inflammation and fibrosis present. ??No metastases are identified. Diagnosis ? FROZEN SECTION DIAGNOSIS ?I. ??FSA - right gutter, frozen section diagnosis ?A. ??Benign. ? (SR/AB). ? II. ??FSB - posterior cul-de-sac implant, frozen section ?diagnosis ?A. ??Negative for tumor. ?? (RT). ?III. ??FSC - rectal implant, frozen section diagnosis ?A. ??No tumor seen. ?(GM/AB). ? FINAL DIAGNOSIS ?I. ??Right gutter, biopsy ?A. ??No tumor identified. ? II. ??Posterior cul-de-sac, biopsy ?A. ??Negative for tumor. ?III. ??Rectal implant ?A. ??No tumor seen. ? IV. ??Pelvic washings, cell block ?A. ??Negative for tumor cells. ?V. ??Diaphragmatic washings, cell block ?A. ??Negative for malignancy. ? . ??Right vaginal cuff, biopsy ?A. ??Negative for metastasis. ?VII. ??Left vaginal cuff, biopsy ?A. ??Negative for metastasis. ? VIII. ??Right lateral pelvic wall, biopsy ?A. ??Negative for metastasis. ? IX. ??Left lateral pelvic wall, biopsy ?A. ??Negative for metastasis. ?X. ??Infundibular pelvic, biopsy ?A. ??Negative for metastasis. ?B. ??Suture granuloma. ? XI. ??Right pelvic lymph node ?A. ??No tumor identified in one lymph node (0/1) ?XII. ??Right common iliac lymph node ?A. ??No tumor identified in two lymph nodes (0/2) ? XIII. ??Left infundibular pelvic ligament ?A. ??No tumor identified in one lymph node (0/1) ?XIV. ??Left pelvic lymph node ?A. No tumor identified in one lymph node (0/1) ? XV. ??Left periaortic lymph node ?A. No lymph nodes identified. ?XVI. ??Right periaortic lymph node ?A. No tumor identified in six lymph node profiles (0/6) ? XVII. ??Appendix ?A. ??No pathologic diagnosis. ?B. ??Negative for metastasis. ?XVIII. ??Left gutter biopsy ?A. ??Negative for metastasis. ?XIX. ??Omentum ?A. ??Negative for metastasis. ?B. ??Inflammation and fibrosis. Muffler Mechanic ? bk Pathologist ?Torres Sarabia M.D. Snomed. ?07/21/2000 0927 <9> CPT code ? 50486/02358 x14, 95048/12002 x1, 8307/24747 x1, 8331/38874 x3 MISCELLANEOUS SAMPLES / Unknown 07/19/2000 10:25 AM CDT 07/19/2000 10:25 AM CDT Historical Provider LAB - PATHOLOGY/C YTOLOGY ORDERABLES Care Teams Groundskeeping Maintenance Relationship Specialty Start Date End Date Yadiel Rowland MD [address] [facility] [address] [place] [address] PCP - General Family Medicine 08/31/16
--- OUTSIDE RECORDS SUMMARY | 2024-11-26 12:06 | XMS_ITS | Referral Summary ---
Author Organization [facility] Address [address] [facility] [place] [address] Care Team Providers Care Security Assessor Name Role Phone Yadiel Rowland MD Primary Care Provider [phone] Source Comments [facility],non-[facility] and Associated Physician Practices is amultiple site organization consisting of ambulatory clinics and hospital sitesin [place], [place], [place] and [place]. This disclosure is being madepursuant to the Care Everywhere program and may not contain all information available regarding this patient. Last updated 18.[facility] Allergies Active Allergy Reactions Criticality Noted Date Comments Latex 07/01/2011 Skin peels Morphine 07/01/2011 Rash and itching Penicillins 07/01/2011 itching Rofecoxib 08/26/2016 Medications * Be aware that medications may not be up to date on this document. Alwaysverify current medications with the patient. Medication Sig Dispensed Refills Start Date End Date Status alendronate (FOSAMAX) 70 MG tablet Take 70 mg by mouth every 7 days before meal. Take in morning with full glass of water on empty stomach and remain upright for 30 min Active multivitamin daily (THERAGRAN) tablet Take 1 Tab by mouth daily with food Active calcium 600 MG tablet Take 1 Tab by mouth daily with food Active Boswellia-Glucosamine -Vit D (GLUCOSAMINE COMPLEX PO) Take 1 Tab by mouth once daily Active oxyCODONE-acetaminoph en (PERCOCET) 5-325 MG tablet Take 1 Tab by mouth every 6 hours as needed for Pain 20 Tab 08/31/2016 Active benzocaine-menthol (DERMOPLAST) 20-0.5 % spray Apply to affected area as needed for Pain (apply to perineum as needed for pain.) 56 g 08/31/2016 Active Active Problems Problem Noted Date Diagnosed Date [...] Comments Blood Pressure 140/80 11/10/2017 1:46 PM TRIM OPERATOR Pulse 61 08/31/2016 12:45 PM CDT Temperature 36.4 ??C (97.5 ??F) 08/31/2016 11:55 AM C DT Respiratory Rate 15 08/31/2016 12:45 PM CDT Oxygen Saturation 99% 08/31/2016 12:45 PM CDT Inhaled Oxygen Concentration - - Weight 64.9 kg (143 lb) 11/10/2017 1:46 PM TRIM OPERATOR Height 167.6 cm (5' 6 ) 11/10/2017 1:46 PM TRIM OPERATOR Body Mass Index 23.08 11/10/2017 1:46 PM TRIM OPERATOR Plan of Treatment Not on file Care Teams Security Assessor Relationship Specialty Start Date End Date Yadiel Rowland MD [address] [place] [address] PCP - General Family Medicine 08/31/16
--- OUTSIDE RECORDS SUMMARY | 2024-11-26 12:06 | XMS_ITS | Clinical Summary ---
Author Organization [facility] Address [address] [facility] [place] [address] Care Team Providers Care Machine Washer Name Role Phone Yadiel Rowland MD Primary Care Provider [phone] Source Comments [facility],non-[facility] and Associated Physician Practices is amultiple site organization consisting of ambulatory clinics and hospital sitesin [place], [place] and [place]. This disclosure is being madepursuant to the Care Everywhere program and may not contain all information available regarding this patient. Last updated 18.[facility] Allergies Active Allergy Reactions Criticality Noted Date [...] Comments Blood Pressure 140/80 11/10/2017 1:46 PM TERMITE CONTROL SERVICER Pulse 61 08/31/2016 12:45 PM CDT Temperature 36.4 ??C (97.5 ??F) 08/31/2016 11:55 AM C DT Respiratory Rate 15 08/31/2016 12:45 PM CDT Oxygen Saturation 99% 08/31/2016 12:45 PM CDT Inhaled Oxygen Concentration - - Weight 64.9 kg (143 lb) 11/10/2017 1:46 PM TERMITE CONTROL SERVICER Height 167.6 cm (5' 6 ) 11/10/2017 1:46 PM TERMITE CONTROL SERVICER Body Mass Index 23.08 11/10/2017 1:46 PM TERMITE CONTROL SERVICER Plan of Treatment Health Maintenance Due Date Last Done Comments BONE DENSITY TESTING 1943 DTAP/TDAP/TD VACCINES (1 - Tdap) 1962 PNEUMOCOCCAL VACCINE 50+ (1 of 1 - PCV) 1993 ZOSTER VACCINE (1 of 2) 1993 Respiratory Syncytial Virus (RSV) Vaccine Pt: or over 60 yrs (1 - 1-dose 75+ series) 2018 COVID-19 VACCINE ( - 2023-2 5 season) 2024 INFLUENZA VACCINE (#1) 2024 DEPRESSION SCREENING 10/31/2024 MEDICARE AWV ? CALENDAR YEAR 2024 HEPATITIS B VACCINE Aged Out No longe r eligible based on patient's age to complete this topic HIB VACCINE Aged Out No longer eligi ble based on patient's age to complete this topic HPV VACCINE Aged Out No longer eligi ble based on patient's age to complete this topic MENINGOCOCCAL (Group B) VACCINE Aged Out No longer eligible based on patient's age to complete this topic MENINGOCOCCAL VACCINE Aged Out No mo raciel eligible based on patient's age to complete this topic Care Teams Machine Washer Relationship Specialty Start Date End Date Yadiel Rowland MD [address] [place] [address] PCP - General Family Medicine 08/31/16
--- OUTSIDE RECORDS SUMMARY | 2024-11-26 12:39 | XMS_ITS | Patient Health Summary ---
Author Organization [facility] Address [address] [facility] [place] [address] Care Team Providers Care Hair Mixer Name Role Phone Yadiel Rowland MD Primary Care Provider [phone] Note from [facility],non-owned Affiliates and Associated Physician Practices is amultiple site organization consisting of ambulatory clinics and hospital sitesin [place], [place], [place] and [place]. This disclosure is being madepursuant to the Care Everywhere program and may not contain all information available regarding this patient. Last updated 18.[facility] Allergies * Latex(Skin peels) * Morphine(Rash [...] Tab by mouth daily with food * Zdofolrvg-Ykvhxeukynz-Ncp D (GLUCOSAMINE COMPLEX PO) Take 1 Tab [...] Comments Blood Pressure 140/80 11/10/2017 1:46 PM CELLAR WORKER Pulse 61 08/31/2016 12:45 PM CDT Temperature 36.4 ??C (97.5 ??F) 08/31/2016 11:55 AM C DT Respiratory Rate 15 08/31/2016 12:45 PM CDT Oxygen Saturation 99% 08/31/2016 12:45 PM CDT Inhaled Oxygen Concentration - - Weight 64.9 kg (143 lb) 11/10/2017 1:46 PM CELLAR WORKER Height 167.6 cm (5' 6 ) 11/10/2017 1:46 PM CELLAR WORKER Body Mass Index 23.08 11/10/2017 1:46 PM CELLAR WORKER Procedures * PATHOLOGY TISSUE(Performed 11/10/2017) * PATHOLOGY [...] * LAB HISTORICAL RESULTS-ONBASE(Performed 12/03/2008) * CYTOLOGY NON-WEATHER ANALYST PANEL(Performed 07/19/2000) * CYTOLOGY NON-WEATHER ANALYST PANEL(Performed 07/19/2000) * FROZEN SECTION(Performed 07/19/2000) Results * PATHOLOGY/GENETICS HISTORICAL-ONBASE (11/10/2017) Only the most recent of14 resultswithin the time period is included. 11/10/2017 Historical Provider LAB - CHEMISTRY O RDERABLES [facility] [address] * PATHOLOGY TISSUE (11/10/2017 12:00 AM CELLAR WORKER) Only the most recent of2 resultswithin the time period is included. Pathologist [facility] Surgical Pathology Tissue ACCESSION No: [id number] CLINICAL HISTORY: Vaginal cuff biopsy. FINAL DIAGNOSIS: [...] bag and submitted entirely in cassette A1/ [place] for EMS/met The performance characteristics of all immunohistochemical and indirect immunofluorescence stains (if any) cited in this report were determined by the Histopathology Laboratory of [facility].?? Some of these tests were developed by [...] by Kike Costa DO. Electronically signed 11/18/2017 [facility] Other (qualifier value) 11/10/2017 11/17/2017 10:59 AM CELLAR WORKER Narrative [facility] - 11/18/2017 10:39 AM CELLAR WORKER Specimen A->Vaginal ? CUFF BIOPSY Bobbi Singh DIRECTOR OF OCCUPATIONAL HEALTH-SOIL TECHNOLOGIST LAB - PATHOLOGY/ CYTOLOGY ORDERABLES [facility] [address] [facility]. [address] [phone] * (ABNORMAL) PAP IMAGE-GUIDED LIQUID BASE W HPV (04/07/2017 12:00 AM CDT) Only the most recent of3 resultswithin the time period is included. Pap Image-Guided Liquid-Based with HPV Accession No: [id number] Specimen:Endocervi ryan ThinPrep Slides:1 SPECIMEN ADEQUACY: Specimen Processed and Examined, but Unsatisfactory for Evaluation of Epithelial Abnormality Because of: - Scant Squamous Component INTERPRETATION: UNSATISFACTORY FOR EVALUATION NOTE(S): HPV DIRECT - HPV Result to Follow This specimen was evaluated by the ThinPrep Imaging System along with an additional manual rescreening by a barrel rifler operator and/or pathologist Initial Evaluation performed by Nilda ROSEN (ASC). Electronically signed 04/11/2017 Interpretation performed by Moe Paniagua MD. ??Electronically signed 04/19/2017 (A) [facility] ([facility]) Endocervical 04/07/2017 04/11/2017 9 :10 AM CDT Brayan Kc MD LAB - PATHOLOGY/CYTO LOGY ORDERABLES Performing Organization Address [facility] [place]/[facility] de Phone Number [facility] ([facility]) * CARDIAC RHYTHM STRIP ORDER (09/02/2016 8:56 PM CDT) Only the most recent of2 resultswithin the time period is included. Narrative 09/02/2016 8:56 PM CDT Ordered by an unspecified provider. Scanned Document CARDIAC SERVICES ORD ERABLES * GROSS + MICRO EXAM (STL) (08/31/2016 10:58 AM CDT) Case Report Surgical Pathology Report ? Case: [id number] ? Authorizing Provider: ??Brayan Kc MD ? Collected: ? 08/31/2016 10:58 AM ? Ordering Location: ? [facility] ? Received: ?08/31/2016 11:32 AM ? Pathologist: ? Juan Miguel García MD ? Specimens: ?? A) - Vagina Biopsy, vaginal cuff biopsy ? B) - Vagina Biopsy, vaginal ??biopsy ? 09/01/2016 11:20 AM [facility] Final Diagnosis 1 and 2, vaginal cuff and vaginal, biopsies: -- Surface erosion/ulceration -- Negative for dysplasia or malignancy. 09/01/2016 11:20 AM [facility] Gross Description Received in formalin are [...] labeled B1. DYT/na 09/01/2016 11:20 AM T [facility] Microscopic Description 1 and 2. Sections show vaginal squamous mucosa with surface erosion/ulceraton with associated inflammation and vascular congestion. No dysplasia or malignancy is seen. 09/01/2016 11:20 AM T [facility] Disclaimer All histochemical and/or immunohistochemical results are interpreted with controls that demonstrate appropriate staining reactions before reporting results. Note on use of immunocytochemistry reagents: This test was developed and its performance characteristic determined by [facility], Department of Laboratory Medicine. It has not been cleared or approved by the U.S. Food and Drug Administration (FDA). The FDA has determined that such clearance or approval is not necessary. The test is used for clinical purpose. It should not be regarded as investigational or for research. This laboratory is certified to perform high complexity testing. 09/01/2016 11:20 AM T [facility] Embedded Images 09/01/2016 11:20 AM T [facility] Pathology/Cytology VAGINAL BIOPSY SPECIMEN / Unknown 08/31/2016 10:58 AM CDT 08/31/2016 11:32 AM CDT Miscellaneous samples (specimen) VAGINAL BIOPSY SPECIMEN / Unknown 08/31/2016 10:59 AM CDT 08/31/2016 11:32 AM CDT Brayan Kc MD LAB - PATHOLOGY/CYTO LOGY ORDERABLES Performing Organization Address [place]/[facility] Co de Phone Number [facility] [address] [place] [address] * PAP IG RFLX HPV ASCU (07/18/2013) Only the most recent of3 resultswithin the time period is included. ENTIRE VAGINA / Unknown 07/18/2013 Narrative [facility] - 07/24/2013 7:39 AM CDT Mel Katz MD LAB - PATHOLOGY/CYTO LOGY ORDERABLES [facility] [address] * LAB HISTORICAL RESULTS-ONBASE (07/05/2012) Only the most recent of6 resultswithin the time period is included. 07/05/2012 Narrative [facility] - 07/13/2012 9:05 AM CDT Historical Provider LAB - CHEMISTRY Shaunna WALLACE Performing Organization Address [facility] [place]/[facility] Co de Phone Number [facility] [address] [place], [place] [address] * PAP THINPREP (01/06/2011) Only the most recent of4 resultswithin the time period is included. Other (qualifier value) PART OF UTERINE CERVIX / Unknown 01/06/2011 Narrative [facility] - 01/13/2011 2:44 PM CDT Preferred Lab:->OTHER EXTERNAL LAB Mel Katz MD LAB - PATHOLOGY/CYTO LOGY ORDERABLES Performing Organization Address [facility] de Phone Number [facility] * CANCER ANTIGEN (CA)125 BLOOD (09/07/2010 9:36 AM CELLAR WORKER) Only the most recent of3 resultswithin the time period is included. CA 125 4 <21 U/mL [facility] Comment: This test was performed using the Siemens Chemiluminescent method. Values obtained from different assay methods cannot be used interchangeably. CA 125 levels, regardless of value, should not be interpreted as absolute evidence of the presence or absence of disease. Test Performed at: [employer] [facility] [id number] [place] [address] ??[id number] BRAD SALINAS DO,MPH 09/07/2010 9:36 AM CELLAR WORKER 09/07/2010 9:36 AM CELLAR WORKER Mel Katz MD LAB - CHEMISTRY STACIE MANRIQUEZ Performing Organization Address [facility] [place]/[facility] Co de Phone Number [facility] * CYTOLOGY NON-WEATHER ANALYST PANEL (07/19/2000 1:52 PM CDT) Only the [...] Pathologist ?Masoud Levy M.D. CPT code ? 8104/53805 MISCELLANEOUS SAMPLES / Unknown 07/19/2000 1:52 PM [...] specimen is submitted for cell block. ??RK/ [facility] 6-the specimen is identified as right vaginal [...] revealing unremarkable yellow pink fibrofatty soft tissue. ??Research Food Technologist sections are submitted in Q and R. [...] ??Negative for metastasis. ?B. ??Inflammation and fibrosis. Carton Repairer ? bk Pathologist ?Torres Sarabia M.D. Snomed. ?07/21/2000 0927 <9> CPT code ? 42743/00885 x14, 97128/20741 x1, 8307/58948 x1, 8331/98858 x3 MISCELLANEOUS SAMPLES / Unknown 07/19/2000 10:25 AM CDT 07/19/2000 10:25 AM CDT Historical Provider LAB - PATHOLOGY/C YTOLOGY ORDERABLES Care Teams Hair Mixer Relationship Specialty Start Date End Date Yadiel Rowland MD [address] [facility] [address] [place] [address] PCP - General Family Medicine 08/31/16
--- OUTSIDE RECORDS SUMMARY | 2024-11-26 12:39 | XMS_ITS | Clinical Summary ---
Author Organization [facility] Address [address] [facility] [place] [address] Care Team Providers Care Carton Waxing Machine Operator Name Role Phone Yadiel Rowland MD Primary Care Provider [phone] Source Comments [facility],non-[facility] and Associated Physician Practices is amultiple site organization consisting of ambulatory clinics and hospital sitesin [place], [place], [place] and [place]. This disclosure is being madepursuant to the Care Everywhere program and may not contain all information available regarding this patient. Last updated 18.[facility] Allergies Active Allergy Reactions Criticality Noted Date [...] Comments Blood Pressure 140/80 11/10/2017 1:46 PM PREPARATION SUPERVISOR CANNING Pulse 61 08/31/2016 12:45 PM CDT Temperature 36.4 ??C (97.5 ??F) 08/31/2016 11:55 AM C DT Respiratory Rate 15 08/31/2016 12:45 PM CDT Oxygen Saturation 99% 08/31/2016 12:45 PM CDT Inhaled Oxygen Concentration - - Weight 64.9 kg (143 lb) 11/10/2017 1:46 PM PREPARATION SUPERVISOR CANNING Height 167.6 cm (5' 6 ) 11/10/2017 1:46 PM PREPARATION SUPERVISOR CANNING Body Mass Index 23.08 11/10/2017 1:46 PM PREPARATION SUPERVISOR CANNING Plan of Treatment Health Maintenance Due Date [...] age to complete this topic Care Teams Carton Waxing Machine Operator Relationship Specialty Start Date End Date Yadiel Rowland MD [address] [place] [address] PCP - General Family Medicine 08/31/16
--- OUTSIDE RECORDS SUMMARY | 2024-11-26 12:39 | XMS_ITS | Continuity of Care Document ---
Author Organization [facility] Address [address] [place] [address] Phone Care Team Providers Care Gas Pumping Station Helper Name Role Phone Selwyn Little MD Unavailable [...] Encounter Office/outpat ient visit,est, mod [facility], [address] [facility], [place], [place], [id number], [place] tel:[phone] [facility] Right hand (chief complaint) Pain in right finger(s)Kaela josh osteoarthrit is, right hand 4 Sidney Samano. [address] [facility], [facility] [address], [place], [place], [id number], [place]. tel:[phone] Referring Provider: Selwyn Mccain, [address] [facility] [address], [place], [address] . tel:[phone] [facility], [address] [facility] [address], [place], [place], [address], [place] tel:[phone] [facility] Right hand (chief complaint) Trigger thumb, right thumb 2 Sidney Samano. [address] [facility], [address], [place], [place], [id number], [place]. tel:[phone] [facility], [address] [address], [place], [place], [address], [place] tel:[phone] [facility] No Information 2 Sidney Samano. [address] [facility], [address] [address], [place], [place], [id number], [place]. tel:[phone] Referring Provider: Selwyn Mccain, [address] [facility] [address], [place], [address] . tel:[phone] Office/outpat ient visit,[facility], [facility], [address] [address], [place], [place], [address], [place] tel:[phone] [facility] Right Hand (chief complaint) Trigger thumb, right thumb 2 Sidney Samano. [address] [facility], [facility] [address], [place], [place], [address], [place]. tel:[phone] Referring Provider: Selwyn Mccain, [address] [facility] [address], [place], [address] . tel:[phone] Office/outpat ient visit,[facility], [facility], [address] [facility] [address], [place], [place], [address], [place] tel:[phone] [facility] Right Hand (chief complaint) Trigger thumb, right thumb 1 Sidney Samano. [address] [facility], [address], [place], [place], [address], . tel:[phone] Referring Provider: Selwyn Mccain, [address] [facility] [address], [place], [address] . tel:[phone] Family History Family Member Type Diagnosis Age At Onset Mother Problem (finding) Osteoarthritis Immunizations Vaccine Date Status Comments influenza, injectable, quadrivalent, (3 years or older) not administered Note: recorded ; Ann rce: Source Unspecified Payers Payer name Insurance type Covered green party ID Authoriza tion(s) [employer] Medicare CI [id number] Social History Type Description Quantity Date Captured [...]
--- OUTSIDE RECORDS SUMMARY | 2024-11-26 12:39 | XMS_ITS | Referral Summary ---
Author Organization [facility] Address [address] [facility] [place] [address] Care Team Providers Care Manual Control Auger Press Operator Name Role Phone Yadiel Rowland MD Primary Care Provider Source Comments [facility],non-[facility] and Associated Physician Practices is amultiple site organization consisting of ambulatory clinics and hospital sitesin [place], [place], [place] and [place]. This disclosure is being madepursuant to the Care Everywhere program and may not contain all information available regarding this patient. Last updated 18.[facility] Allergies Active Allergy Reactions Criticality [...] Comments Blood Pressure 140/80 11/10/2017 1:46 PM DIESEL TRUCK TECHNICIAN Pulse 61 08/31/2016 12:45 PM CDT Temperature 36.4 ??C (97.5 ??F) 08/31/2016 11:55 AM C DT Respiratory Rate 15 08/31/2016 12:45 PM CDT Oxygen Saturation 99% 08/31/2016 12:45 PM CDT Inhaled Oxygen Concentration - - Weight 64.9 kg (143 lb) 11/10/2017 1:46 PM DIESEL TRUCK TECHNICIAN Height 167.6 cm (5' 6 ) 11/10/2017 1:46 PM DIESEL TRUCK TECHNICIAN Body Mass Index 23.08 11/10/2017 1:46 PM DIESEL TRUCK TECHNICIAN Plan of Treatment Not on file Care Teams Manual Control Auger Press Operator Relationship Specialty Start Date End Date Yadiel Rowland MD [address] [place] [address] PCP - General Family Medicine 08/31/16
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
[2024-11-26 13:02] VITALS: BP 155/85; PULSE 86; RESP 18; O2SAT 98
== END 2024-11-26 13:00 | disposition home or self-care (01) ==
PROVIDERS: Emergency Provider Emergency Medicine; PCP Family Medicine
DX: S39.012A Strain of muscle, fascia and tendon of lower back, initial encounter (principal); M25.512 Pain in left shoulder; M79.644 Pain in right finger(s); V89.2XXA Person injured in unspecified motor-vehicle accident, traffic, initial encounter; E78.5 Hyperlipidemia, unspecified; I10 Essential (primary) hypertension; Z85.43 Personal history of malignant neoplasm of ovary
CPT/HCPCS: 72100; 73030; 73140; 99284

== ENCOUNTER 2024-12-14 10:08 | Outpatient (CLI) | payer OTHER, SELFPAY ==
--- NOTE | ~2024-12-14 | MR_ITS ---
EXAMINATION: MR shoulder LT wo con DATE: 12/14/2024 10:36 INDICATION: Left shoulder injury and pain. TECHNIQUE: Magnetic resonance imaging (MRI) of the left shoulder was performed without intravenous co ntrast. Sequences included axial PD-weighted FS FSE, coronal oblique PD-weighted FS FSE and T2-weight ed FS FSE, and sagittal oblique T2-weighted FS FSE and T1-weighted FSE. COMPARISON: Left shoulder radiographs 11/26/2024 FINDINGS: Coracoacromial arch: The acromion undersurface is flat in morphology (type I). There is moderate acromioclavicular joint o steoarthritis. There is moderate subacromial/subdeltoid bursitis. Rotator cuff: There is severe supraspinatus and infraspinatus tendinopathy. There is an articular sided partial thi ckness of the conjoined portion of the tendon measuring 6 mm anterior to posterior by 3.2 cm proximal to distal by 70% tendon thickness. Teres minor tendon is normal. There is mild subscapularis tendino juan. There is no asymmetric fatty atrophy of the rotator cuff muscle bellies. Biceps tendon and glenoid labrum: The glenoid labrum is intact. Biceps tendon is in bicipital groove. There is a partial tear of intra- articular biceps tendon. Fluid: There is a small glenohumeral joint effusion. Bones/cartilage: There is cartilage surface irregularity of glenoid and humeral head. IMPRESSION: 1. Articular sided partial thickness tear involving supraspinatus and infraspinatus tendons. 2. Mild glenohumeral joint chondrosis. 3. Moderate acromioclavicular joint osteoarthritis. 4. Partial tear of biceps tendon. 5. Small glenohumeral joint effusion. 6. Moderate subacromial/subdeltoid bursitis. Reviewed, dictated and finalized at location A. LEASING MANAGER IMPRESSION: 1. Articular sided partial thickness tear involving supraspinatus and infraspin atus tendons. 2. Mild glenohumeral joint chondrosis. 3. Moderate acromioclavicular joint osteoarthritis. 4. Partial tear of biceps tendon. 5. Small glenohumeral joint effusion. 6. Moderate subacromial/subdeltoid bursitis.
== END 2024-12-14 10:09 | disposition home or self-care (01) ==
LOC: GOSHIMG 10:08
PROVIDERS: PCP Family Medicine; Visit Provider Physician Assistant Medical
DX: S49.92XA Unspecified injury of left shoulder and upper arm, initial encounter (principal); X58.XXXA Exposure to other specified factors, initial encounter; V89.2XXA Person injured in unspecified motor-vehicle accident, traffic, initial encounter
CPT/HCPCS: 73221

== ENCOUNTER 2025-01-22 14:22 | Outpatient (CLI) | payer MEDICARE, SELFPAY ==
--- NOTE | ~2025-01-22 | MR_ITS ---
EXAMINATION: MR lumbar spine wo con DATE: 01/22/2025 14:49 INDICATION: Low back pain. TECHNIQUE: Magnetic resonance imaging (MRI) of the lumbar spine was performed without intravenous con trast. Sequences included sagittal T2-weighted FSE, sagittal T2-weighted FS FSE, sagittal T1-weighted FSE, and axial T2-weighted FSE. COMPARISON: Lumbar spine radiographs 11/26/2024 FINDINGS: Bone alignment is normal. Vertebral body heights are normal. There is mildly decreased disc height at L2-L3 and L4-L5. The distal spinal cord signal intensity is normal. The conus medullaris i s at L1. 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 There is a 2.5 cm cyst in right kidney. The following disc lev els are specifically discussed: L1-L2: The disc is bulging. There is mild bilateral facet joint osteoarthritis. There is no neural fo raminal stenosis. There is mild central canal stenosis. L2-L3: The disc is bulging. There is moderate bilateral facet joint osteoarthritis. There is mild ej ateral neural foraminal stenosis. There is mild central canal stenosis. L3-L4: The disc is mildly bulging. There is mild bilateral facet joint osteoarthritis. There is mild bilateral neural foraminal stenosis. There is no central canal stenosis. L4-L5: The disc is bulging and has an annular fissure. There is mild bilateral facet joint osteoarthr itis. There is mild bilateral neural foraminal stenosis. There is mild central canal stenosis. L5-S1: The disc is bulging. There is moderate bilateral facet joint osteoarthritis. There is mild ej ateral neural foraminal stenosis. There is mild central canal stenosis. IMPRESSION: 1. Mild lumbar spondylosis. Reviewed, dictated and finalized at location A. IMPRESSION: 1. Mild lumbar spondylosis.
--- NOTE | ~2025-01-22 | MR_ITS ---
EXAMINATION: MR hand RT wo con DATE: 01/22/2025 15:04 INDICATION: Right thumb metacarpophalangeal joint sprain. TECHNIQUE: Magnetic resonance imaging (MRI) of the right hand was performed without intravenous contr ast. COMPARISON: Right thumb radiographs 11/26/2024 FINDINGS: Alignment is normal. No fracture. There is mild osteoarthritis of first and second metacarp ophalangeal joints and first carpometacarpal joint. There are changes of prior sprains of the collate ral ligaments at the first metacarpophalangeal joint characterized by increased signal intensity. No Stener lesion. The flexor and extensor tendons are normal. IMPRESSION: 1. Mild sprains of the collateral ligaments at first metacarpophalangeal joint. No Stener lesion. Reviewed, dictated and finalized at location A.
== END 2025-01-22 14:23 | disposition home or self-care (01) ==
LOC: GOSHIMG 14:22
PROVIDERS: PCP Physician Assistant Medical; Visit Provider Plastic Surgery
DX: S63.591D Other specified sprain of right wrist, subsequent encounter (principal); X58.XXXD Exposure to other specified factors, subsequent encounter; M47.896 Other spondylosis, lumbar region
CPT/HCPCS: 72148; 73218

== ENCOUNTER 2025-03-13 12:51 | Outpatient (CLI) | payer MEDICARE, SELFPAY ==
--- NOTE | ~2025-03-13 | US_ITS ---
US thyroid INDICATION: Nontoxic multinodular goiter TECHNIQUE: Real-time sonographic images of the thyroid gland were obtained. COMPARISON: No prior studies for comparison. FINDINGS: The right thyroid lobe measures 6.4 x 2.5 x 2.3 cm. The left thyroid lobe measures 7.2 x 2 .5 x 2.5 cm. Mildly heterogeneous thyroid echotexture. In the right lobe there is a solid hyperechoic wider than tall mass with ill-defined margins and punctate internal echogenic foci measuring 2 x 1.6 x 1.5 cm, TR 5. There is significant internal vascularity. Isthmus measures 4 mm. In the left lobe t here is a complex heterogeneous mass with internal vascularity, mostly solid, wider than tall, slight ly hyperechoic, ill-defined margins measuring 4 x 2.5 x 3.4 cm. There are punctate internal echogenic foci, TR 5. Normal vascular flow is present. IMPRESSION: 1. Bilateral thyroid suspicious masses. Ultrasound-guided fine-needle aspiration bilaterally recomme nded. Reviewed, dictated and finalized at location A. IMPRESSION: 1. Bilateral thyroid suspicious masses. Ultrasound-guided fine-needle aspirati on bilaterally recommended.
== END 2025-03-13 12:52 | disposition home or self-care (01) ==
LOC: GOSHIMG 12:51
PROVIDERS: PCP Family Medicine; Visit Provider Family Medicine
DX: E04.2 Nontoxic multinodular goiter (principal)
CPT/HCPCS: 76536

== ENCOUNTER 2025-06-18 14:11 | Outpatient (CLI) | payer MEDICARE, SELFPAY ==
--- NOTE | ~2025-06-18 | XR_ITS ---
XR shoulder LT min 2V 06/18/2025 14:36 Indication: Left shoulder pain Procedure: 4 views left shoulder Comparison: 11/26/2024 Findings: No fracture, subluxation or dislocation. No significant soft tissue abnormality. No foreign bodies. Impression: 1: No acute bone or joint abnormality. Reviewed, dictated and finalized at location A. Impression: 1: No acute bone or joint abnormality.
== END 2025-06-18 14:12 | disposition home or self-care (01) ==
PROVIDERS: PCP Family Medicine; Visit Provider Orthopaedic Surgery
DX: M75.112 Incomplete rotator cuff tear or rupture of left shoulder, not specified as traumatic (principal)
CPT/HCPCS: 73030

== ENCOUNTER 2025-10-11 13:02 | Outpatient (CLI) | payer MEDICARE, SELFPAY ==
--- NOTE | ~2025-10-11 | MM_ITS ---
EXAMINATION: MM screening teresa BI w adebayo HISTORY: Screening. TECHNIQUE: Craniocaudal and mediolateral oblique 3-D tomosynthesis images were obtained and synthetic 2-D images were generated. CAD analysis was submitted and interpreted. COMPARISON: 2023, 2022, and 2020. BREAST PARENCHYMAL COMPOSITION: Not Dense: There are scattered areas of fibroglandular FINDINGS: No suspicious masses are seen. There are no suspicious calcifications. No unexplained architectural distortion is seen. There are no skin or nipple abnormalities identified. There is no adenopathy seen on the images submitted. IMPRESSION: No mammographic evidence to suggest malignancy is seen. The patient may return to screening mammography as per ACR guidelines. BI-RADS 1 - Negative. Reviewed, dictated and finalized at location C. TOLOGICAL TECHNICIAN
== END 2025-10-11 13:03 | disposition home or self-care (01) ==
LOC: ANHFOHIMG 13:04
PROVIDERS: PCP Family Medicine; Visit Provider Family Medicine
DX: Z12.31 Encounter for screening mammogram for malignant neoplasm of breast (principal)
CPT/HCPCS: 77063; 77067